=== PATIENT | male | born 1975 | race Caucasian/White ===

== ENCOUNTER 2020-10-03 23:24 | Emergency (ER) | payer SELFPAY ==
[~2020-10-03] VITALS: Ht 193 cm; Wt 136.0 kg
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
--- NOTE | 2020-10-04 00:34 | RAD ---
INDICATION: Trauma COMPARISON: None. TECHNIQUE: Axial CT images obtained through the head and cervical spine without intravenous contrast. Coronal a nd sagittal reformats processed of cervical spine. One or more of the following individualized dose reduction techniques were utilized for this examinat ion: 1. Automated exposure control; 2. Adjustment of the mA and/or kV according to patient size; 3 . Use of iterative reconstruction technique. FINDINGS: Head: No intracranial hemorrhage. No midline shift. Basal cisterns patents. Ventricles and sulci are within normal limits. No acute osseous abnormality. Orbits and paranasal sinuses unremarkable. High density within the vessels. Could be from hemoconcentration or calcific atherosclerosis. There a re some probable arachnoid granulation seen at the calvarium overlying the cerebellum. Cervical: No evidence of significant malalignment. Degenerative changes of the cervical spine with disc osteophyte formation with uncovertebral and face t hypertrophy. More than typically seen for the patient's age with some regions of central canal and neural foraminal stenosis most severe at C4-5, C5-6, C6-7. There is a large disc osteophyte complex a t C6-7 moderate central canal stenosis. There is also severe left-sided neural foraminal stenosis at this level there is less severe neural foraminal stenosis at other levels Retroesophageal left subclavian artery which appears prominent in size measuring up to 22 mm. Mildly prominent lymph node right upper neck fossa measuring approximately 8 mm short axis. There are scatte red lymph nodes in the neck. IMPRESSION: * No acute intracranial hemorrhage. * Degenerative changes of the cervical spine which is more than typically seen for the patient's age including at C6-7 where there is significant central canal and left greater than right neural forami nal stenosis. No definite acute fracture. Electronically signed by: Figueroa Abarca MD (10/04/2020 12:32 AM) [id number]
[2020-10-04] MEDS ORDERED: IV NORMAL SALINE 1000ML BAG 1,000 ML IV ONE ×2 (01:00→03:00)
[2020-10-04] MEDS ORDERED: hydrALAZINE 20 MG/ML VIAL. IVP ONE (01:00)
[2020-10-04 01:14] LABS: BASO % 0 % (0-3); EOS % 1 % (0-3); HEMATOCRIT 52.2 % (39.0-53.0); LYMPH # 1.1 x10^3/uL (1.0-4.8); LYMPH % 14 % (24-48); MEAN CORPUSCULAR HEMOGLOBIN 32 pg (25-35); MEAN CORPUSCULAR HGB CONC 34 g/dL (31-37); MEAN CORPUSCULAR VOLUME 92 fL (79-100); MONO # 0.5 x10^3/uL (0.0-1.1); MONO % 7 % (0-9); NEUT # 5.8 x10^3/uL (1.8-7.7); NEUT % 78 % (31-73); PLATELET COUNT 240 x10^3/uL (140-400); RED CELL DISTRIBUTION WIDTH 13.8 % (11.5-14.5); WHITE BLOOD COUNT 7.5 x10^3/uL (4.0-11.0)
[2020-10-04 01:16] LABS: CALCIUM 8.4 mg/dL (8.5-10.1); GFR 80.8; POTASSIUM 3.3 mmol/L (3.5-5.1)
[2020-10-04 01:22] LABS: ALBUMIN 4.1 g/dL (3.4-5.0); ALBUMIN/GLOBULIN RATIO 1.2 (1.0-1.7); TOTAL BILIRUBIN 0.3 mg/dL (0.2-1.0); TOTAL PROTEIN 7.6 g/dL (6.4-8.2)
[2020-10-04] MEDS ORDERED: DOXYCYCLINE HYCLATE 100 MG TABLET PO ONE (02:00)
[2020-10-04] MEDS ORDERED: cefTRIAXone IM 500 MG VIAL. IM ONE (02:00)
[2020-10-04 02:26] VITALS: BP 195/105
== END 2020-10-04 06:34 | disposition home or self-care (01) ==
LOC: ER 23:24
DX: F10.229 Alcohol dependence with intoxication, unspecified (principal); Y90.8 Blood alcohol level of 240 mg/100 ml or more; M54.2 Cervicalgia; R51.9 Headache, unspecified; I10 Essential (primary) hypertension
CPT/HCPCS: 36415; 70450; 72125; 80053; 84484; 85025; 93005; 96361; 96374; 99291; G0480; J0360; J7030